=== PATIENT | female | born 1955 | race Caucasian/White ===

== ENCOUNTER 2017-12-21 12:15 | Emergency (ER) | payer BC ==
--- NOTE | 2017-12-21 13:57 | UC ---
General HPI - HPI Summary HPI Summary: 62 yo female c/o 2-3 weeks of progressive cough, left ear pain, sore throat with cough. No rash. + low grade fever this past week. No abd discomfort. No rash. C/o urinary incontinence d/t coughing so hard (x approx 1 week). - History of Current Complaint Stated Complaint: COUGH,CONGESTION,ST,EARS Time Seen by Provider: 12/21/17 13:48 Hx Obtained From: Patient - Allergy/Home Medications Allergies/Adverse Reactions: Allergies Allergy/AdvReac Type Severity Reaction Status Date / Time buspirone Allergy See Comment Verified 12/21/17 14:16 pregabalin [From Lyrica] Allergy Swelling Verified 12/21/17 14:16 quetiapine Allergy See Comment Verified 12/21/17 14:16 Home Medications: Home Medications Aspirin 81 mg CHEW TAB* [Aspirin Low Dose TAB*] 81 mg PO DAILY 12/21/17 [ History Confirmed 12/21/17] Calcium Citrate TAB* [Citracal TAB*] 200 mg PO DAILY 12/21/17 [History Confirmed 12/21/17] Carisoprodol TAB* [Soma TAB*] 350 mg PO TID 12/21/17 [History Confirmed ] Diazepam TAB(*) [Valium TAB(*)] 10 mg PO Q8H PRN 12/21/17 [History Confirmed ] Docusate CAP* [Colace Cap*] 100 mg PO DAILY 12/21/17 [History Confirmed 12/21/17 ] Iron 65 mg PO DAILY 12/21/17 [History Confirmed 12/21/17] Isradipine (NF) [DynaCirc (NF)] 5 mg PO BID 12/21/17 [History Confirmed 12/21/17 ] L.acidoph,Paracasei, B.lactis [Probiotic] 1 each PO DAILY 12/21/17 [History Confirmed 12/21/17] Mirtazapine TAB* [Remeron TAB*] 15 mg PO BEDTIME 12/21/17 [History Confirmed ] PARoxetine HCL TAB* [Paxil TAB*] 40 mg PO DAILY 12/21/17 [History Confirmed ] Ranitidine HCl (Nf) [Zantac] 150 mg PO DAILY 12/21/17 [History Confirmed ] Rosuvastatin (NF) [Crestor (NF)] 10 mg PO DAILY 12/21/17 [History Confirmed ] Valsartan TAB* [Diovan TAB*] 320 mg PO DAILY 12/21/17 [History Confirmed ] PMH/Surg Hx/FS Hx/Imm Hx Previously Healthy: No - see pmh - Family History Known Family History: Positive: Unknown - Social History Lives: Alone Smoking Status (MU): Current Every Day Smoker Review of Systems Constitutional: Fever, Fatigue Skin: Negative Eyes: Negative ENT: Ear Ache Respiratory: Cough Cardiovascular: Negative Gastrointestinal: Negative Genitourinary: Negative Motor: Negative Neurovascular: Negative Musculoskeletal: Negative Neurological: Negative Psychological: Negative Is Patient Immunocompromised?: No All Other Systems Reviewed And Are Negative: Yes Physical Exam Triage Information Reviewed: Yes Appearance: Well-Nourished - sitting up, conversing in full sentances, looks tired but nad Vital Signs Reviewed: Yes Eye Exam: Normal ENT: Positive: Pharyngeal erythema - mild post redness, uvula midline. no sores. airway patent, TM dull - tm dull L>R Neck exam: Normal Neck: Positive: Supple, Nontender, No Lymphadenopathy Respiratory Exam: Other - + occas exp wheeze. + rhonchorus cough. BS equal Respiratory: Positive: Chest non-tender, No respiratory distress, No accessory muscle use, Respiratory distress Cardiovascular Exam: Normal Cardiovascular: Positive: RRR, No Murmur Abdominal Exam: Normal Abdomen Description: Positive: Nontender Bowel Sounds: Positive: Present Musculoskeletal Exam: Normal - gait steady, moves x 4 exts Neurological Exam: Normal - grossly nonfocal Psychological Exam: Normal - conversing easily and appropriately tearful Skin Exam: Normal - no visible or reported rash. non-diaphoretic. Course/Dx - Course Course Of Treatment: Reviewe coa / tx plan with pt. Questions as posed answered to the best of my ability. Has used albuterol in the past without difficulty. F/u pcp encouraged. - Differential Dx - Multi-Symptom Provider Diagnoses: Bronchitis with wheezing Discharge - Sign-Out/Discharge Documenting (check all that apply): Discharge/Admit/Transfer - Discharge Plan Condition: Stable Disposition: HOME Prescriptions: Albuterol HFA INHALER* [Ventolin HFA Inhaler*] 1 - 2 puff INH Q4H PRN #1 mdi PRN Reason: Wheezing DOXYcycline CAP(*) [DOXYcycline 100MG CAP(*)] 100 mg PO BID #20 cap Patient Education Materials: Upper Respiratory Infection (ED), Bronchospasm (ED ) Referrals: Yeni Parisi MD [Primary Care Provider] - Additional Instructions: Follow up with your primary care physician in the next 1-2 weeks for recheck. Please seek medical attention for worse or new problems in the meantime. - Billing Disposition and Condition Condition: STABLE Disposition: HOME
[2017-12-21 14:27] VITALS: BP 127/95
== END 2017-12-21 14:28 | disposition home or self-care (01) ==
LOC: UCCORT 12:15
DX: J40 Bronchitis, not specified as acute or chronic (principal); R06.2 Wheezing; Z88.8 Allergy status to other drugs, medicaments and biological substances; F17.210 Nicotine dependence, cigarettes, uncomplicated
CPT/HCPCS: 99202; G0463

== ENCOUNTER 2017-12-25 12:24 | Emergency (ER) | payer BC ==
[2017-12-25 13:41] VITALS: BP 149/77
--- NOTE | 2017-12-25 13:41 | UC ---
Respiratory Complaint HPI - HPI Summary HPI Summary: 62 y/o female presents to the urgent care c/o productive cough getting worse today. Pt has Hx of anxiety. Pt reports symptoms started 2 weeks ago w/ clearn nasal congestion and dry cough. She was seen here on 12/21/2017 and Dx w / bronchitis and Rx Doxycycline Po and albuterol inhaler. However her weeding has gotten worse despite inhaler. Pt was not able to sleep last night due to cough. seh feel mild SOB at times. Pt is a heavy everyday smoker. Pt deneis fever, chest pain, palpitations, abdominal pain, N/V/D. - History of Current Complaint Stated Complaint: COUGH/ST Time Seen by Provider: 12/25/17 13:32 Hx Obtained From: Patient ?: No Onset/Duration: Gradual Onset, Lasting Weeks - 2 weeks, Still Present Timing: Intermittent Episodes Severity Initially: Mild Severity Currently: Moderate Pain Intensity: 2 - sore throat Pain Scale Used: 0-10 Numeric Character: Cough: Productive, Sputum Description: - clear Aggravating Factors: Recumbent Position - Allergies/Home Medications Allergies/Adverse Reactions: Allergies Allergy/AdvReac Type Severity Reaction Status Date / Time buspirone Allergy See Comment Verified 12/21/17 14:16 pregabalin [From Lyrica] Allergy Swelling Verified 12/21/17 14:16 quetiapine Allergy See Comment Verified 12/21/17 14:16 PMH/Surg Hx/FS Hx/Imm Hx Previously Healthy: Yes Endocrine History: Dyslipidemia Cardiovascular History: Hypertension GI/ History: Gastroesophageal Reflux Psychological History: Anxiety, Depression - Surgical History Surgical History: Yes Surgery Procedure, Year, and Place: neck, back. patrizia - Family History Known Family History: Positive: None, Cardiac Disease, Hypertension - Social History Occupation: Retired Lives: With Family Alcohol Use: None Substance Use Type: None Smoking Status (MU): Current Every Day Smoker Type: Cigarettes Amount Used/How Often: less than 1/2 PPD Review of Systems Constitutional: Negative Skin: Negative Eyes: Negative ENT: Sore Throat - mild Respiratory: Shortness Of Breath - mild at times, Cough - productive, Other - wheezing Cardiovascular: Negative Gastrointestinal: Negative Genitourinary: Negative Motor: Negative Neurovascular: Negative Musculoskeletal: Negative Neurological: Negative Psychological: Negative Is Patient Immunocompromised?: No All Other Systems Reviewed And Are Negative: Yes Physical Exam - Summary Physical Exam Summary: Vital Signs Reviewed: Yes General: well developed, well nourished female sitting in the examining table w/ o any apparent distress Eyes: Positive: Conjunctiva Clear - PERRLA, EOMI, fundi grossly normal ENT: Positive: Normal ENT inspection, Hearing grossly normal, Pharynx normal, Nasal congestion - edematous and erythematous nasal mucosa, Nasal drainage - yellowish drainage, TMs normal. Negative: Tonsillar swelling, Tonsillar exudate Neck: Positive: Supple, Nontender, No Lymphadenopathy Respiratory: no orthopnea or dyspnea. Able to speak in full sentences, no retractions or accessory muscle use, no tripod position, stridor, or head bobbing. Positive breath sounds bilaterally,B/L postrior lungs w; scattered wheezing, no rhonchi, rales or crackles Cardiovascular: Positive: RRR, No Murmur, Pulses Normal, Brisk Capillary Refill Abdomen Description: Positive: Nontender, No Organomegaly, Soft. Negative: CVA Tenderness (R), CVA Tenderness (L) Bowel Sounds: Positive: Present Musculoskeletal Exam: Normal Musculoskeletal: Positive: Strength Intact, ROM Intact, No Edema Neurological Exam: Normal Psychological Exam: Normal Skin Exam: Normal Triage Information Reviewed: Yes Respiratory Course/Dx - Course Course Of Treatment: 62 y/o female presents to the urgent care c/o productive cough getting worse today. Pt has Hx of anxiety. Pt reports symptoms started 2 weeks ago w/ clearn nasal congestion and dry cough. She was seen here on 12/21 and Dx w/ bronchitis and Rx Doxycycline Po and albuterol inhaler. However her weeding has gotten worse despite inhaler. Pt was not able to sleep last night due to cough. seh feel mild SOB at times. Pt is a heavy everyday smoker. Pt deneis fever, chest pain, palpitations, abdominal pain, N/V/D. Hx obtained. Pt w/ acute COPD exacerbation due to bronchitis on examination. Chest X-ray ordered to r/o pneumonia. Impression: Stigmata of COPD, No active Cardiopulmonary disease observed. Pt with posterior upper lungs w/ scattered wheezing on both lungs. O2sat: 96% Pt is a heavy smoker. Prednisone 60 mg PO ordered. Pt just did an albuterol inhaler about 1/2hr ago. Pt tolerated well medications and her lungs improved. Pt states feeling better. Pt will be tX for Acute Bronchitis,Advised to continue taking Doxycycline PO , RX Prednisone taper dose and tessalon tabs PO to alleviate cough. Strongly advised to f/u with her PCP for further management. She also has elevated BP today, advised to decrease salt in her diet and monitor BP, if it continues to be elevated to f /u with her PCP. Pt understood and agreed with D/C instructions and left the clinic hemodynamically stable. - Differential Dx/Diagnosis Differential Diagnosis/HQI/PQRI: Asthma, Bronchitis, Exacerbation Of COPD, Lower Resp Infection, Sinusitis Provider Diagnoses: 1- Acute COPD exacerbation due to bronchitis. 2-cough. 3- Uncontrolled HTN Discharge - Sign-Out/Discharge Documenting (check all that apply): Discharge/Admit/Transfer - D/C home - Discharge Plan Condition: Stable Disposition: HOME Prescriptions: Benzonatate CAP* [Tessalon 100 MG CAP*] 100 mg PO TID #21 cap predniSONE TAB* [Deltasone 20 MG TAB*] 20 mg PO DAILY #8 tab Patient Education Materials: COPD (Chronic Obstructive Pulmonary Disease) (ED) , Low-Sodium Diet (ED) Referrals: Yeni Parisi MD [Primary Care Provider] - 3 Days Additional Instructions: 1-Please continue taking Doxycycline full course of antibiotic to avoid resistance. 2- Take Prednisone PO as directed starting tomorrow. First dose given today 3-Take Tessalon PO tabs as directed and continue using the albuterol inhaler to alleviate cough. Increase fluid intake, rest and eat well. 4- If symptoms do not improve or worsen or your develop SOB with fever and severe wheezing please go immediately to the ER further evaluation and treatment. 5- F/u with your PCP in 2-3 days for further management you maybe developing COPD 6-Your BP is elevated today. please decrease salt in your diet, monitor BP and if it continues to be elevated please f/u with your PCP for further management - Billing Disposition and Condition Condition: STABLE Disposition: Home
[2017-12-25] MEDS ORDERED: predniSONE TAB* 20 MG PO ONE (14:18)
--- NOTE | 2017-12-25 14:19 | RAD ---
INDICATION: Productive cough, shortness of breath, wheezing. Bronchitis for 3 weeks. COMPARISON: No relevant prior exams available on the [facility] [place]ACS for comparison. TECHNIQUE: Dual energy PA and routine lateral views of the chest were obtained. REPORT: Elevated lung volumes based on the lateral view. Both mild prominence and mild upper lung zone rarefaction of interstitial markings. No focal pulmonary lesion, compelling alveolar consolidation, pleural effusion, pneumothorax. The heart, pulmonary vasculature, and mediastinal contours are unremarkable. No rib fracture or suspicious focal osseous lesion evident. Anterior cervical fusion hardware. Gallbladder fossa level surgical clips. IMPRESSION: Stigmata of obstructive lung disease. No acute pulmonary or cardiac process evident.
== END 2017-12-25 14:53 | disposition home or self-care (01) ==
LOC: UCCORT 12:24
DX: J44.9 Chronic obstructive pulmonary disease, unspecified (principal); J20.9 Acute bronchitis, unspecified; I10 Essential (primary) hypertension; F17.210 Nicotine dependence, cigarettes, uncomplicated; Z88.8 Allergy status to other drugs, medicaments and biological substances
CPT/HCPCS: 71046; 99212; G0463; J7512

== ENCOUNTER 2018-03-23 14:25 | Emergency (ER) | payer BC ==
--- OUTSIDE RECORDS SUMMARY | 2018-03-23 15:10 | XMS REPORT ---
:1955 External Reference #:[id number] Author Organization [facility] Address [address], [address] [place] [address] Phone [phone] Care Team Providers Name Role Phone Yeni Parisi MD Care Team Information [employer] Unavailable Yeni Parisi MD Primary Care Physician Unavailable Payers Type Date Identification Numbers Payment Provider Subscriber Commercial Effective: Policy Number: Abilio Frost 2009 [id number] Group Number: [id number] [address] [address] PayID: [id number] [place] [address] Problems Date Description Provider Status Onset: 03/22/2015 Spinal stenosis Maribell Gutierrez PA-C Active Note: cervical fusion, Dr. Herzog, Matt; also L4-5; L4-5 diskectomy, interbody fusion September 2014 Onset: 03/22/2015 Iron deficiency anemia Maribell Gutierrez PA-C Active Note: Feb 2015 ferritin 26 Onset: 03/22/2015 Essential hypertension Maribell Gutierrez PA-C Active Note: low-renin; BP readings December 2016 high 149/84, low 117/81 Onset: 03/22/2015 Hyperlipidemia Maribell Gutierrez PA-C Active Note: Chol 2015 Onset: 03/22/2015 History of polyp of colon Maribell Gutierrez PA-C Active Note: TA; colonoscopy to TI 2010; random colon Bx- Onset: 03/22/2015 Chronic bronchitis Maribell Gutierrez PA-C Active Note: PFT November 2013 Onset: 03/22/2015 Thin basement membrane disease Maribell Gutierrez PA-C Active Note: CT a&p - 09/2011 Onset: 03/22/2015 Diverticulosis of small intestine Maribell Gutierrez PA-C Active Note: D2 Onset: 03/22/2015 Chronic pancreatitis Maribell Gutierrez PA-C Active Onset: 03/22/2015 Depressive disorder Maribell Gutierrez PA-C Active Onset: 03/22/2015 Primary fibromyalgia syndrome Maribell Gutierrez PA-C Active Onset: 03/22/2015 Gout Maribell Gutierrez PA-C Active Onset: 03/22/2015 Degenerative joint disease Maribell Gutierrez PA-C Active involving multiple joints Onset: 03/22/2015 Gastroesophageal reflux disease Maribell Gutierrez PA-C Active Onset: 09/03/2015 Adult health examination Maribell Gutierrez PA-C Active Note: Breast exam 2015 and mammogram 2015 (Carlos). Pap smear 2016. 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 Work Status Not Currently Working Cigarette Use Current Cigarette Smoker 1 Pack Daily x 20 yrs ETOH Use Denies alcohol use Smoking Patient is a current smoker, smokes every day 1 PPD Recreational Drug Use Denies Drug Use Daily Caffeine Consumes on average 2 cups of regular coffee per day Allergies, Adverse Reactions, Alerts Date Description Reaction Status Severity Comments 03/22/2015 Cyclobenzaprine active Moderate 03/22/2015 Lyrica active Moderate Peripheral Edema 08/19/2016 Seroquel active confusion, depression 06/08/2017 Buspirone Psychotic active 04/04/2010 NKDA inactive Medications Medication Date Status Form Strength Qnty SIG Indications Ordering Provider Venlafaxine 03/12 Active Caps ER 37.5mg 30cap Take one F41.0 Zarina HCL 24HR s in the [place], morning 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 Mirtazapine 11/05 Active Tablets 15mg 90tab 1 tablet F32.89 Yeni s by mouth MD Isak at at bedtime Probiotic 10/15 Active Capsules 90cap 1 capsules J06.9 Hector Acid s by mouth Mohini Craven daily Isradipine 08/19 Active Capsules 5mg 180ca take 1 I10 ps capsule (5 MD Isak mg) by mouth twice daily Zantac 04/02 Active Tablets 150mg 180ta 1 by mouth Russ E. bs every day Behzad DO Valsartan 11/26 Active Tablets 320mg 90tab 1 by mouth I10 s every day MD Isak Soma 03/07 Active Tablets 350mg 120ta 1 by mouth bs every 6 h Mohini Craven as needed pain Stool Softener Active Capsules 100mg 1 po daily Unknown / Aspirin Ec Active Tablets DR 81mg 1 daily Unknown /0000 Iron Active Tablets 325(65Fe) 1 by mouth Unknown /0000 mg every day Paroxetine HCL Active Tablets 40mg 90tab 1 tab by Yeni s mouth MD Isak every day Citracal +D3 Active 1 by mouth Unknown /0000 every day Motrin Ib Active Tablets 200mg 3 PO q 8 Unknown /0000 hrs prn Benzonatate 12/16 Hx Capsules 100mg 30cap 1 tab by Yeni s mouth MD Isak - every 8 / hours needed for cough Sudafed Nasal 12/16 Hx Tablets 30mg 30tab 1 tab by Yeni Decongestant s mouth MD Isak Maximum - twice a Strength 03/12 day needed for congestion Fluticasone 09/24 Hx Suspension 50mcg/Act 16gm spray 1-2 Yeni Propionate sprays in MD Isak - each 03/12 nostril once daily Buspirone HCL 11/05 Hx Tablets 15mg 180ta 1 by mouth [id number] Hector bs once daily Mohini Craven x 5 days, then off Buspirone HCL 10/15 Hx Tablets 15mg 270ta 1 by mouth [id number] Hector bs three Mohini Craven - times 11/05 Azithromycin 10/15 Hx Tablets 250mg 6tabs take 2 J06. tablets by Mohini Craven - mouth on 11/05 day then 1 tablet by mouth x 4 days Buspirone HCL 08/19 Hx Tablets 7.5mg 120ta 1 tab by Cata Young bs mouth oMhini Craven - twice 10/15 daily, increase to 2 tabs twice daily Metronidazole 04/17 Hx Tablets 500mg 30tab 1 by mouth Meliton s three H. times a Carlos Mohini Zostavax 04/02 Hx Solution 70050Dlp/ 1unit vaccine Russ Hernandez Rec 0.65ML s administra Behzad LORENZ tion dx v04.89 Sucralfate 03/20 Hx Tablets 1gm 120ta 1 by mouth Meliton bs four times H. - a day Carlos 11/05 M.DHerbert Alprazolam 02/18 Hx Tablets 1mg 270ta 3 by mouth [id number] Young bs 3 times a Mohini Craven - day as 11/05 needed Quetiapine 02/18 Hx Tablets 25mg 90tab 1 by mouth F32.8 Russ Hernandez Fumarate s every day Behzad LORENZ - 07/31 Morphine 12/02 Hx Caps ER 10mg 30cap 1 by mouth Russ EHerbert Sulfate ER /2015 24HR s daily Behzad LORENZ Benzonatate 11/26 Hx Capsules 200mg 90cap 1 by mouth J01.90 Russ . s three Behzad DO - times a 03/20 day needed cough Azithromycin 11/26 Hx Tablets 250mg 6tabs take 2 J.90 tablets by Behzad DO mouth on day 1, then 1 tablet by mouth x 4 days Wendi 11/26 Hx Caps ER 20mg 1 PO bid Russ Hernandez 24HR Behzad LORENZ - 12/02 Valsartan 10/14 Hx Tablets 160mg 90tab 1 by mouth I10 Russ EHerbert s every day Behzad LORENZ - 11/26 Alprazolam 09/03 Hx Tablets 1mg 180ta take 1-2 Russ EHerbert bs tablets by Behzad DO - mouth 02/18 times a day as needed Isradipine 09/03 Hx Capsules 2.5mg 180ca take 1 ps capsule Mohini Maddox - (2.5 mg) 08/19 by mouth times per day Ferrous 03/22 Hx Tablets 325(65Fe) 60tab 1 by mouth Nehemiah Mccabe mg s 2 times a Mohini Maddox day MS Contin 03/12 Hx Tablets ER 60mg 60tab 1 by mouth Russ Hernandez /2014 s every 12 Behzad DO - hours 11/26 Oxycodone HCL 03/12 Hx Tablets 30mg 180ta 1 tablet Russ Hernandez bs by mouth Behzad LORENZ - every 4 11/26 hours needed pain Pravastatin 03/07 Hx Tablets 40mg 90tab 1 by mouth Russ Castaneda s every Behzad DO - night at 06/08 bedtime Silver 04/13 Hx Cream 1% 400gm use on 709.9 [place] Sulfadiazine /2013 dressings, H. - band aid Carlos, 09/03 and with Mohini /2015 bathing or dressing changes once daily and as needed Percocet 00 Hx Tablets 5-325mg po q4h prn Nehemiah /0000 Mohini Maddox - 04/[address] 40mg 30cap 1 po qd Unknown / s - 01/07 MS Contin Hx Tablets ER 60mg bid Unknown /0000 12HR - 03/12 Diovan Hx Tablets 80mg 30tab 1 po qd Unknown /0000 s - 01/14 Ursodiol Hx Capsules 300mg 60cap 1 po bid Unknown /0000 s - 09/03 Niaspan Hx Tablets ER 500mg 30tab 1 po qd Unknown /0000 s - 01/[address] 40mg 90tab 1 PO daily Nehemiah /0000 s (before darrell Maddox M.D. - meal) 04/02 Pravastatin Hx Tablets 40mg Unknown Sodium /0000 - 03/07 Isradipine Hx Capsules 2.5mg Unknown /0000 - 09/03 Soma Hx Tablets 350mg 1 po q 6 h Unknown /0000 prn pain - 03/07 Oxycodone HCL Hx Tablets 15mg Unknown /0000 - 03/12 Ibuprofen 00 Hx Tablets 600mg Unknown /0000 Alprazolam 00 Hx Tablets 0.25mg 1 po every Unknown /0000 8 hours - prn 09/03 Oxycodone HCL Hx Tablets 5mg 15tab 1/2 tablet Russ E. /0000 s by mouth Behzad DO daily as needed Keflex Hx Capsules 500mg 1 by mouth Unknown /0000 bid Immunizations CPT Code Status Date Vaccine Lot # [id number] Given 04/04/2014 flu vaccination 07435 Given 03/24/2012 flu vaccination 05290 Given 04/11/2011 Tetnus Injection 54809 Given 04/11/2011 flu vaccination 31547 Given 05/22/2010 flu vaccination 50160 Given 04/25/2008 flu vaccination 64992 Given 08/27/2000 Tetnus Injection 93117 Given 07/27/2000 Pneumococcal Conjugate Vaccine 13 Valent For Intramuscular Use Q2038 Refused 04/02/2016 Influenza Vaccine (Fluzone) Age 3 And Older Vital Signs Date Vital Result Comment 03/12/2018 BP Systolic 161 mmHg BP Diastolic 90 mmHg Body Temperature 98.1 F Heart Rate 79 /min Respiratory Rate 18 /min Height 60 inches 5'0" Weight 175.50 lb BMI (Body Mass Index) 34.3 kg/m2 BSA (Body Surface Area) 1.77 m2 [place] body weight in kilograms 45 O2 % BldC Oximetry 95 % 12/16/2017 BP Systolic Sitting Right Arm 160 mmHg Ady 137/85 BP Diastolic Sitting Right Arm 92 mmHg Ady 137/85 Body Temperature 97.9 F Heart Rate 91 /min Respiratory Rate 16 /min Height 60 inches 5'0" Weight 181.00 lb BMI (Body Mass Index) 35.3 kg/m2 BSA (Body Surface Area) 1.79 m2 [place] body weight in kilograms 45 O2 % BldC Oximetry 94 % 09/21/2017 BP Systolic Sitting Right Arm 147 mmHg Ady 127/78 BP Diastolic Sitting Right Arm 85 mmHg Ady 127/78 Heart Rate 87 /min Respiratory Rate 16 /min Height 60 inches 5'0" Weight 178.00 lb BMI (Body Mass Index) 34.8 kg/m2 BSA (Body Surface Area) 1.78 m2 [place] body weight in kilograms 45 06/08/2017 BP Systolic Sitting Right Arm 184 mmHg Ady 134/83 BP Diastolic Sitting Right Arm 87 mmHg Ady 134/83 Heart Rate 91 /min Height 60 inches 5'0" Weight 168.00 lb BMI (Body Mass Index) 32.8 kg/m2 BSA (Body Surface Area) 1.73 m2 [place] body weight in kilograms 45 12/03/2016 BP Systolic 156 mmHg BP Diastolic 84 mmHg Heart Rate 86 /min Height 60 inches 5'0" Weight 151.00 lb BMI (Body Mass Index) 29.5 kg/m2 BSA (Body Surface Area) 1.66 m2 [place] body weight in kilograms 45 11/05/2016 BP Systolic Sitting Right Arm 152 mmHg BP Diastolic Sitting Right Arm 84 mmHg Height 60 inches 5'0" Weight 147.50 lb BMI (Body Mass Index) 28.8 kg/m2 BSA (Body Surface Area) 1.64 m2 10/15/2016 BP Systolic 146 mmHg BP Diastolic 78 mmHg Body Temperature 98.1 F Heart Rate 78 /min Height 60 inches 5'0" Weight 147.00 lb BMI (Body Mass Index) 28.7 kg/m2 BSA (Body Surface Area) 1.64 m2 O2 % BldC Oximetry 99 % 08/19/2016 BP Systolic 158 mmHg BP Diastolic 86 mmHg Heart Rate 78 /min Height 60 inches 5'0" Weight 145.00 lb BMI (Body Mass Index) 28.3 kg/m2 BSA (Body Surface Area) 1.63 m2 04/02/2016 BP Systolic 135 mmHg BP Diastolic 86 mmHg Heart Rate 73 /min Height 60 inches 5'0" Weight 145.00 lb BMI (Body Mass Index) 28.3 kg/m2 BSA (Body Surface Area) 1.63 m2 03/20/2016 BP Systolic 146 mmHg BP Diastolic 77 mmHg BP Systolic Standing Resting Right Arm 77 mmHg Height 60 inches 5'0" Weight 141.38 lb BMI (Body Mass Index) 27.6 kg/m2 BSA (Body Surface Area) 1.61 m2 02/19/2016 BP Systolic 134 mmHg BP Diastolic 84 mmHg Heart Rate 84 /min Height 60 inches 5'0" Weight 147.00 lb BMI (Body Mass Index) 28.7 kg/m2 BSA (Body Surface Area) 1.64 m2 01/15/2016 BP Systolic 137 mmHg BP Diastolic 91 mmHg Heart Rate 79 /min Height 60 inches 5'0" Weight 146.00 lb BMI (Body Mass Index) 28.5 kg/m2 BSA (Body Surface Area) 1.63 m2 11/27/2015 BP Systolic 140 mmHg BP Diastolic 74 mmHg Body Temperature 98.4 F Heart Rate 60 /min Height 60 inches 5'0" Weight 142.00 lb BMI (Body Mass Index) 27.7 kg/m2 BSA (Body Surface Area) 1.61 m2 O2 % BldC Oximetry 97 % 10/15/2015 Heart Rate 63 /min Respiratory Rate 16 /min Height 60 inches 5'0" Weight 150.00 lb BMI (Body Mass Index) 29.3 kg/m2 BSA (Body Surface Area) 1.65 m2 09/03/2015 BP Systolic 191 mmHg BP Diastolic 98 mmHg Heart Rate 79 /min Height 60 inches 5'0" Weight 144.00 lb BMI (Body Mass Index) 28.1 kg/m2 BSA (Body Surface Area) 1.62 m2 03/22/2015 BP Systolic 132 mmHg BP Diastolic 84 mmHg Heart Rate 80 /min Height 60 inches 5'0" Weight 143.00 lb BMI (Body Mass Index) 27.9 kg/m2 BSA (Body Surface Area) 1.62 m2 04/13/2014 Height 60 inches 5'0" Weight 143.00 lb BMI (Body Mass Index) 27.9 kg/m2 BSA (Body Surface Area) 1.62 m2 01/07/2013 BP Systolic Sitting Right Arm 140 mmHg BP Diastolic Sitting Right Arm 84 mmHg Height 62 inches 5'2" Weight 161.00 lb BMI (Body Mass Index) 29.4 kg/m2 BSA (Body Surface Area) 1.74 m2 10/06/2012 BP Systolic Sitting Right Arm 124 mmHg BP Diastolic Sitting Right Arm 75 mmHg Heart Rate 67 /min Respiratory Rate 16 /min Height 60 inches 5'0" Weight 148.00 lb BMI (Body Mass Index) 28.9 kg/m2 09/11/2011 BP Systolic Sitting Right Arm 137 mmHg BP Diastolic Sitting Right Arm 83 mmHg Heart Rate 67 /min Respiratory Rate 18 /min Height 60 inches 5'0" Weight 138.00 lb BMI (Body Mass Index) 26.9 kg/m2 04/04/2010 Height 60 inches 5'0" Weight 152.00 lb BMI (Body Mass Index) 29.7 kg/m2 Last Menstrual Period 0 Results Test Date Test Result H/L Range Note Comprehensive Metabolic Panel 01/18/2018 Glucose 118 mg/dL High 74-106 1 BUN 16 mg/dL 7-18 1 Creatinine 0.8 mg/dL 0.6-1.3 1 Glom Filtration Rate, Estimate >60 mL/min >60 1 If >60 mL/min >60 1, 2 BUN/Creat 20.0 ratio 1 Sodium 140 mmol/L 136-145 1 Potassium 4.0 mmol/L 3.5-5.1 1 Chloride 106 mmol/L 98-107 1 Carbon Dioxide 22 mmol/L 21-32 1 Anion Gap 12 mEq/L 8-16 1 Calcium 8.9 mg/dL 8.5-10.1 1 Total Protein 7.8 g/dL 6.4-8.2 1 Albumin 3.6 g/dL 3.4-5.0 1 Globulin 4.2 g/dL 1.9-4.3 1 Alb/Glob 0.9 ratio 1 Bilirubin,Total 0.1 mg/dL Low 0.2-1.0 1 Sgot/Ast 16 U/L 15-37 1 SGPT/Alt 21 U/L 12-78 1 Alkaline Phosphatase 92 U/L 45-117 1 LDL Cholesterol Profile 01/18/2018 Cholesterol 183 mg/dL <200 1, 3 Triglycerides 231 mg/dL High <150 1, 4 HDL Cholesterol 54 mg/dL >40 1, 5 LDL-Cholesterol 83 mg/dL < 100 1, 6 Laboratory test finding 01/18/2018 Vitamin D,25-Hydroxy 33.9 ng/mL 30.0- 100.0 1, 7 CBS W/Automated Diff 09/16/2017 White Blood Count 7.0 K/uL 3.1-10.7 8 Red Blood Count 4.09 M/uL 3.90-5.40 8 Hemoglobin 13.3 gm/dL 11.6-15.8 8 Hematocrit 40.1 % 36.0-46.1 8 Mean Cell Volume 98.0 fl 80.9-99.0 8 Mean Corpuscular HGB 32.5 pg 25.9-32.7 8 Mean Corpuscular HGB Conc 33.2 g/dL 30.8-34.3 8 Platelet Count 323 K/uL 155-360 8 Red Cell Distri Width SD 44.5 fl 3-47 8 Red Cell Distri Width %CV 12.6 % 11.7-14.4 8 Mean Platelet Volume 9.3 fL 8.9-12.4 8 Neut% 62.3 % 40.4-72.8 8 Lymph % 26.9 % 20.0-42.0 8 Dane % 8.4 % 4.3-13.2 8 Eo% 2.0 % 0.0-6.6 8 Bas% 0.4 % 0.0-1.1 8 Neut# 4.37 K/uL 1.8-7.0 8 Lymph # 1.89 K/uL 1.0-4.0 8 Dane # 0.59 K/uL 0.3-0.9 8 Eos # 0.14 K/uL 0.0-0.5 8 Baso # 0.03 K/uL 0.0-0.1 8 Laboratory test 09/16/2017 Vitamin D,25-Hydroxy 27.3 ng/mL Low 30.0-100.0 8, 9 finding Comprehensive 09/16/2017 Glucose 108 mg/dL High 74-106 8 Metabolic Panel BUN 14 mg/dL 7-18 8 Creatinine 0.8 mg/dL 0.6-1.3 8 Glom Filtration Rate, Estimate >60 mL/min >60 8 If >60 mL/min >60 8, 10 BUN/Creat 17.5 ratio 8 Sodium 142 mmol/L 136-145 8 Potassium 4.4 mmol/L 3.5-5.1 8 Chloride 107 mmol/L 98-107 8 Carbon Dioxide 28 mmol/L 21-32 8 Anion Gap 7 mEq/L Low 8-16 8 Calcium 8.7 mg/dL 8.5-10.1 8 Total Protein 7.8 g/dL 6.4-8.2 8 Albumin 3.6 g/dL 3.4-5.0 8 Globulin 4.2 g/dL 1.9-4.3 8 Alb/Glob 0.9 ratio 8 Bilirubin,Total 0.2 mg/dL 0.2-1.0 8 Sgot/Ast 17 U/L 15-37 8 SGPT/Alt 16 U/L 12-78 8 Alkaline Phosphatase 87 U/L 45-117 8 Glycohemoglobin A1c 09/16/2017 Glycohemoglobin (A1c) 5.3 % 4.2-6.3 8, 11 eAG 105 mg/dL 8 LDL Cholesterol Profile 09/16/2017 Cholesterol 187 mg/dL <200 8, 12 Triglycerides 248 mg/dL High <150 8, 13 HDL Cholesterol 58 mg/dL >40 8, 14 LDL-Cholesterol 79 mg/dL < 100 8, 15 Xray 07/30/2017 Mammography, Bilateral birads 0 Laboratory test finding 04/28/2017 Magnesium 2.2 mg/dL 1.8-2.4 16 Vitamin D,25-Hydroxy 28.6 ng/mL Low 30.0-100.0 16, 17 LDL Cholesterol Profile 04/28/2017 Cholesterol 260 mg/dL High <200 16, 18 Triglycerides 261 mg/dL High <150 16, 19 HDL Cholesterol 64 mg/dL >40 16, 20 LDL-Cholesterol 144 mg/dL < 100 16, 21 Comprehensive Metabolic Panel 04/28/2017 Glucose 115 mg/dL High 74-106 16 BUN 16 mg/dL 7-18 16 Creatinine 0.9 mg/dL 0.6-1.3 16 Glom Filtration Rate, Estimate >60 mL/min >60 16 If >60 mL/min >60 16, 22 BUN/Creat 17.7 ratio 16 Sodium 144 mmol/L 136-145 16 Potassium 4.0 mmol/L 3.5-5.1 16 Chloride 111 mmol/L High 98-107 16 Carbon Dioxide 26 mmol/L 21-32 16 Anion Gap 7 mEq/L Low 8-16 16 Calcium 8.7 mg/dL 8.5-10.1 16 Total Protein 7.6 g/dL 6.4-8.2 16 Albumin 3.7 g/dL 3.4-5.0 16 Globulin 3.9 g/dL 1.9-4.3 16 Alb/Glob 0.9 ratio 16 Bilirubin,Total 0.2 mg/dL 0.2-1.0 16 Sgot/Ast 15 U/L 15-37 16 SGPT/Alt 19 U/L 12-78 16 Alkaline Phosphatase 96 U/L 45-117 16 CBS W/Automated Diff 04/28/2017 White Blood Count 7.2 K/uL 3.1-10.7 16 Red Blood Count 4.04 M/uL 3.90-5.40 16 Hemoglobin 13.4 gm/dL 11.6-15.8 16 Hematocrit 39.9 % 36.0-46.1 16 Mean Cell Volume 98.8 fl 80.9-99.0 16 Mean Corpuscular HGB 33.2 pg High 25.9-32.7 16 Mean Corpuscular HGB Conc 33.6 g/dL 30.8-34.3 16 Platelet Count 299 K/uL 150-400 16 Red Cell Distri Width SD 46.4 fl 3-47 16 Red Cell Distri Width %CV 13.1 % 11.7-14.4 16 Mean Platelet Volume 9.6 fL 8.9-12.4 16 Neut% 52.3 % 40.4-72.8 16 Lymph % 36.0 % 20.0-42.0 16 Dane % 8.2 % 4.3-13.2 16 Eo% 3.1 % 0.0-6.6 16 Bas% 0.4 % 0.0-1.1 16 Neut# 3.74 K/uL 1.8-7.0 16 Lymph # 2.58 K/uL 1.0-4.0 16 Dane # 0.59 K/uL 0.3-0.9 16 Eos # 0.22 K/uL 0.0-0.5 16 Baso # 0.03 K/uL 0.0-0.1 16 Laboratory test finding 04/28/2017 Ferritin 202 ng/mL 8-252 16 Lymphocytes/leuk NFr 07/29/2016 Lymphocytes/leuk NFr 40.1 17.0-46.1 Bld Auto Bld Auto MCH RBC Qn Auto 07/29/2016 MCH RBC Qn Auto 32.3 25.9-32.7 MCHC RBC Auto-mCnc 07/29/2016 MCHC RBC Auto-mCnc 33.2 30.8-34.3 MCV RBC Auto 07/29/2016 MCV RBC Auto 97.4 80.9-99.0 Monocytes # Bld Auto 07/29/2016 Monocytes # Bld Auto 0.58 0.3-0.9 Monocytes/leuk NFr Bld 07/29/2016 Monocytes/leuk NFr Bld 8.4 4.3-13.2 Auto Auto Neutrophils # Bld Auto 07/29/2016 Neutrophils # Bld Auto 3.34 1.8-7.0 Neutrophils/leuk NFr 07/29/2016 Neutrophils/leuk NFr 48.6 40.4-72.8 Bld Auto Bld Auto PMV Bld Auto 07/29/2016 PMV Bld Auto 9.3 8.9-12.4 Platelet # Bld Auto 07/29/2016 Platelet # Bld Auto 397 High 155-360 Potassium SerPl-sCnc 07/29/2016 Potassium SerPl-sCnc 4.8 3.5-5.1 Prot SerPl-mCnc 07/29/2016 Prot SerPl-mCnc 7.0 6.4-8.2 RBC # Bld Auto 07/29/2016 RBC # Bld Auto 3.81 Low 3.90-5.40 RDW RBC Auto 07/29/2016 RDW RBC Auto 45.7 3-47 RDW RBC Auto-Rto 07/29/2016 RDW RBC Auto-Rto 13.2 11.7-14.4 Serum or plasma 07/29/2016 Serum or plasma 106 8-252 ferritin measurement ferritin measurement (mass/volume) (mass/volume) Sodium SerPl-sCnc 07/29/2016 Sodium SerPl-sCnc 137 136-145 WBC # Bld Auto 07/29/2016 WBC # Bld Auto 6.9 3.1-10.7 CBS W/Automated Diff 07/29/2016 White Blood Count 6.9 K/uL 3.1-10.7 23 Red Blood Count 3.81 M/uL Low 3.90-5.40 23 Hemoglobin 12.3 gm/dL 11.6-15.8 23 Hematocrit 37.1 % 36.0-46.1 23 Mean Cell Volume 97.4 fl 80.9-99.0 23 Mean Corpuscular HGB 32.3 pg 25.9-32.7 23 Mean Corpuscular HGB Conc 33.2 g/dL 30.8-34.3 23 Platelet Count 397 K/uL High 155-360 23 Red Cell Distri Width SD 45.7 fl 3-47 23 Red Cell Distri Width %CV 13.2 % 11.7-14.4 23 Mean Platelet Volume 9.3 fL 8.9-12.4 23 Neut% 48.6 % 40.4-72.8 23 Lymph % 40.1 % 17.0-46.1 23 Dane % 8.4 % 4.3-13.2 23 Eo% 2.3 % 0.0-6.6 23 Bas% 0.6 % 0.0-1.1 23 Neut# 3.34 K/uL 1.8-7.0 23 Lymph # 2.76 K/uL 1.8-7.0 23 Dane # 0.58 K/uL 0.3-0.9 23 Eos # 0.16 K/uL 0.0-0.5 23 Baso # 0.04 K/uL 0.0-0.1 23 Comprehensive Metabolic Panel 07/29/2016 Glucose 85 mg/dL 74-106 23 BUN 14 mg/dL 7-18 23 Creatinine 0.7 mg/dL 0.6-1.3 23 Glom Filtration Rate, Estimate >60 mL/min >60 23 If >60 mL/min >60 23, 24 BUN/Creat 20.0 ratio 23 Sodium 137 mmol/L 136-145 23 Potassium 4.8 mmol/L 3.5-5.1 23 Chloride 104 mmol/L 98-107 23 Carbon Dioxide 26 mmol/L 21-32 23 Anion Gap 7 mEq/L Low 8-16 23 Calcium 8.5 mg/dL 8.5-10.1 23 Total Protein 7.0 g/dL 6.4-8.2 23 Albumin 3.4 g/dL 3.4-5.0 23 Globulin 3.6 g/dL 1.9-4.3 23 Alb/Glob 0.9 ratio 23 Bilirubin,Total 0.2 mg/dL 0.2-1.0 23 Sgot/Ast 22 U/L 15-37 23 SGPT/Alt 30 U/L 12-78 23 Alkaline Phosphatase 93 U/L 45-117 23 Laboratory test 07/29/2016 Ferritin 106 ng/mL 8-252 23 finding Alp SerPl-cCnc 07/29/2016 Alp SerPl-cCnc 93 45-117 Alt SerPl-cCnc 07/29/2016 Alt SerPl-cCnc 30 12-78 Ast SerPl-cCnc 07/29/2016 Ast SerPl-cCnc 22 15-37 Albumin SerPl-mCnc 07/29/2016 Albumin SerPl-mCnc 3.4 3.4-5.0 Albumin/Glob SerPl 07/29/2016 Albumin/Glob SerPl 0.9 Anion Gap SerPl-sCnc 07/29/2016 Anion Gap SerPl-sCnc 7 Low 8-16 BUN SerPl-mCnc 07/29/2016 BUN SerPl-mCnc 14 7-18 BUN/Creat SerPl 07/29/2016 BUN/Creat SerPl 20.0 Basophils # Bld Auto 07/29/2016 Basophils # Bld Auto 0.04 0.0-0.1 Lymphocytes # Bld 07/29/2016 Lymphocytes # Bld Auto 2.76 1.8-7.0 Auto Hgb Bld-mCnc 07/29/2016 Hgb Bld-mCnc 12.3 11.6-15.8 Hct VFr Bld Auto 07/29/2016 Hct VFr Bld Auto 37.1 36.0-46.1 Glucose 07/29/2016 Glucose [mass/volume] 85 74-106 [mass/volume] in in serum or plasma serum or plasma Globulin Ser 07/29/2016 Globulin Ser Calc-mCnc 3.6 1.9-4.3 Calc-mCnc Eosinophil/leuk NFr 07/29/2016 Eosinophil/leuk NFr 2.3 0.0-6.6 Bld Auto Bld Auto Eosinophil # Bld 07/29/2016 Eosinophil # Bld Auto 0.16 0.0-0.5 Auto Creat SerPl-mCnc 07/29/2016 Creat SerPl-mCnc 0.7 0.6-1.3 Chloride SerPl-sCnc 07/29/2016 Chloride SerPl-sCnc 104 98-107 Calcium SerPl-mCnc 07/29/2016 Calcium SerPl-mCnc 8.5 8.5-10.1 Co2 SerPl-sCnc 07/29/2016 Co2 SerPl-sCnc 26 21-32 Bilirub SerPl-mCnc 07/29/2016 Bilirub SerPl-mCnc 0.2 0.2-1.0 Basophils/leuk NFr 07/29/2016 Basophils/leuk NFr Bld 0.6 0.0-1.1 Bld Auto Auto pH Ur Strip.auto 07/08/2016 pH Ur Strip.auto 5.5 Low 6.5-7.5 Urobilinogen Ur 07/08/2016 Urobilinogen Ur 0.2 0.2-1.0 Strip-aCnc Strip-aCnc Urine hemoglobin 07/08/2016 Urine hemoglobin Small High Negative detection by detection by automated automated test strip test strip Bacteria Ur Cult 07/08/2016 Bacteria Ur Cult No Growth: Final Report Bacteria [presence] 07/08/2016 Bacteria [presence] in Very Few None Seen in urine sediment by urine sediment by light anna light microscopy Bilirub Ur Ql 07/08/2016 Bilirub Ur Ql Negative Negative Strip.auto Strip.auto Color Ur 07/08/2016 Color Ur Yellow Yellow Epithelial cells 07/08/2016 Epithelial cells Few None Seen [presence] in urine [presence] in urine sediment by l sediment by light microscopy Ketones Ur 07/08/2016 Ketones Ur 40 High Negative Strip.auto-mCnc Strip.auto-mCnc Leukocyte esterase 07/08/2016 Leukocyte esterase Ur Negative Negative Ur Ql Strip.auto Ql Strip.auto Mucus [presence] in 07/08/2016 Mucus [presence] in Small None Seen urine sediment by urine sediment by light micros light microscopy Nitrite Ur Ql 07/08/2016 Nitrite Ur Ql Negative Negative Strip.auto Strip.auto Urine glucose 07/08/2016 Urine glucose Negative Negative measurement by measurement by automated test strip automated test strip (mass/volume) Urine appearance 07/08/2016 Urine appearance SL Cloudy Clear determination determination Prot Ur 07/08/2016 Prot Ur Negative Negative Strip.auto-mCnc Strip.auto-mCnc Laboratory test 03/13/2016 Alanine 30 12-78 finding Aminotransferase (Alt/SGPT) Albumin 4.0 3.4-5.0 Albumin/Globulin Ratio 1.0 Alkaline Phosphatase 87 45-117 Anion Gap 13 8-16 Aspartate Amino Transf (Ast/Sgot) 22 15-37 BUN/Creatinine Ratio 21.4 Basophils # (Auto) 0.02 0.0-0.1 Basophils (%) (Auto) 0.2 0.0-1.1 Blood Urea Nitrogen 15 7-18 Calcium Level 8.7 8.5-10.1 Carbon Dioxide Level 23 21-32 Chloride Level 104 98-107 Creatinine 0.7 0.6-1.3 Eosinophils # (Auto) 0.00 0.0-0.5 Eosinophils (%) (Auto) 0.0 0.0-6.6 Globulin 4.2 1.9-4.3 Glucose Screen 140 High 74-106 Hematocrit 38.2 36.0-46.1 Hemoglobin 13.3 11.6-15.8 Indirect Bilirubin 0.2 0.0-0.9 Lymphocytes # (Auto) 1.40 Low 1.8-7.0 Lymphocytes (%) (Auto) 15.7 Low 17.0-46.1 Manual Slide Review (Hematology) . Mean Corpuscular Hemoglobin 32.0 25.9-32.7 Mean Corpuscular Hemoglobin Concent 34.8 High 30.8-34.3 Mean Corpuscular Volume 91.8 80.9-99.0 Mean Platelet Volume 9.4 8.9-12.4 Monocytes # (Auto) 0.29 Low 0.3-0.9 Monocytes (%) (Auto) 3.3 Low 4.3-13.2 Neutrophils # (Auto) 7.18 High 1.8-7.0 Neutrophils (%) (Auto) 80.8 High 40.4-72.8 Platelet Count 306 155-360 Potassium Level 3.1 Low 3.5-5.1 RDW Coefficient of Variation 12.4 11.7-14.4 Red Blood Count 4.16 3.90-5.40 Red Cell Distribution Width 40.5 3-47 Sodium Level 140 136-145 Total Bilirubin 0.3 0.2-1.0 Total Protein 8.2 6.4-8.2 White Blood Count 8.9 3.1-10.7 Xray 02/27/2016 MRI, Breast, Bilateral phone call 03/06 Laboratory test finding 02/25/2016 BUN 18 mg/dL 7-18 Creatinine 0.7 mg/dL 0.6-1.3 Comprehensive Metabolic Panel 01/14/2016 Glucose 87 mg/dL 74-106 BUN 25 mg/dL High 7-18 Creatinine 0.7 mg/dL 0.6-1.3 Glom Filtration Rate, Estimate >60 mL/min >60 If >60 mL/min >60 25 BUN/Creat 35.7 ratio Sodium 140 mmol/L 136-145 Potassium 4.1 mmol/L 3.5-5.1 Chloride 106 mmol/L 98-107 Carbon Dioxide 24 mmol/L 21-32 Anion Gap 10 mEq/L 8-16 Calcium 8.8 mg/dL 8.5-10.1 Total Protein 7.4 g/dL 6.4-8.2 Albumin 3.6 g/dL 3.4-5.0 Globulin 3.8 g/dL 1.9-4.3 Alb/Glob 0.9 ratio Bilirubin,Total 0.3 mg/dL 0.2-1.0 Sgot/Ast 21 U/L 15-37 SGPT/Alt 27 U/L 12-78 Alkaline Phosphatase 90 U/L 45-117 CBC W/Automated Diff 01/14/2016 White Blood Count 6.5 K/uL 3.1-10.7 Red Blood Count 4.18 M/uL 3.90-5.40 Hemoglobin 13.3 gm/dL 11.6-15.8 Hematocrit 39.2 % 36.0-46.1 Mean Cell Volume 93.8 fl 80.9-99.0 Mean Corpuscular HGB 31.8 pg 25.9-32.7 Mean Corpuscular HGB Conc 33.9 g/dL 30.8-34.3 Platelet Count 311 K/uL 155-360 Red Cell Distri Width SD 42.2 fl 3-47 Red Cell Distri Width %CV 12.6 % 11.7-14.4 Mean Platelet Volume 9.7 fL 8.9-12.4 Neut% 38.5 % Low 40.4-72.8 Lymph % 48.6 % High 17.0-46.1 Dane % 9.4 % 4.3-13.2 Eo% 2.9 % 0.0-6.6 Bas% 0.6 % 0.0-1.1 Neut# 2.49 K/uL 1.8-7.0 Lymph # 3.15 K/uL 1.8-7.0 Dane # 0.61 K/uL 0.3-0.9 Eos # 0.19 K/uL 0.0-0.5 Baso # 0.04 K/uL 0.0-0.1 Laboratory test finding 01/14/2016 Basophils # (Auto) 0.04 0.0-0.1 Basophils (%) (Auto) 0.6 0.0-1.1 Carbon Dioxide Level 24 21-32 Eosinophils # (Auto) 0.19 0.0-0.5 Eosinophils (%) (Auto) 2.9 0.0-6.6 Lymphocytes # (Auto) 3.15 1.8-7.0 Lymphocytes (%) (Auto) 48.6 High 17.0-46.1 Monocytes # (Auto) 0.61 0.3-0.9 Monocytes (%) (Auto) 9.4 4.3-13.2 Neutrophils # (Auto) 2.49 1.8-7.0 Neutrophils (%) (Auto) 38.5 Low 40.4-72.8 RDW Coefficient of Variation 12.6 11.7-14.4 Red Cell Distribution Width 42.2 3-47 Sodium Level 140 136-145 LDL Cholesterol Profile 01/14/2016 Cholesterol 152 mg/dL <200 26 Triglycerides 142 mg/dL <150 27 HDL Cholesterol 52 mg/dL >40 28 LDL-Cholesterol 72 mg/dL < 100 29 Laboratory test finding 01/14/2016 Ferritin 114 ng/mL 8-252 Laboratory test finding 09/02/2015 Basophils # (Auto) 0.02 0.0-0.1 Basophils (%) (Auto) 0.2 0.0-1.1 Eosinophils # (Auto) 0.02 0.0-0.5 Eosinophils (%) (Auto) 0.2 0.0-6.6 Lymphocytes # (Auto) 1.36 Low 1.8-7.0 Lymphocytes (%) (Auto) 14.7 Low 17.0-46.1 Manual Slide Review (Hematology) . Monocytes # (Auto) 0.50 0.3-0.9 Monocytes (%) (Auto) 5.4 4.3-13.2 Neutrophils # (Auto) 7.34 High 1.8-7.0 Neutrophils (%) (Auto) 79.5 High 40.4-72.8 RDW Coefficient of Variation 11.9 11.7-14.4 Red Cell Distribution Width 39.5 3-47 Sodium Level 141 136-145 Laboratory test finding 09/02/2015 Slide Review . 30 CBC W/Automated Diff 09/02/2015 White Blood Count 9.2 K/uL 3.1-10.7 Red Blood Count 4.19 M/uL 3.90-5.40 Hemoglobin 13.6 gm/dL 11.6-15.8 Hematocrit 38.9 % 36.0-46.1 Mean Cell Volume 92.8 fl 80.9-99.0 Mean Corpuscular HGB 32.5 pg 25.9-32.7 Mean Corpuscular HGB Conc 35.0 g/dL High 30.8-34.3 Platelet Count 364 K/uL High 155-360 Red Cell Distri Width SD 39.5 fl 3-47 Red Cell Distri Width %CV 11.9 % 11.7-14.4 Mean Platelet Volume 9.6 fL 8.9-12.4 Neut% 79.5 % High 40.4-72.8 Lymph % 14.7 % Low 17.0-46.1 Dane % 5.4 % 4.3-13.2 Eo% 0.2 % 0.0-6.6 Bas% 0.2 % 0.0-1.1 Neut# 7.34 K/uL High 1.8-7.0 Lymph # 1.36 K/uL Low 1.8-7.0 Dane # 0.50 K/uL 0.3-0.9 Eos # 0.02 K/uL 0.0-0.5 Baso # 0.02 K/uL 0.0-0.1 Comprehensive Metabolic Panel 09/02/2015 Glucose 124 mg/dL High 74-106 BUN 19 mg/dL High 7-18 Creatinine 0.8 mg/dL 0.6-1.3 Glom Filtration Rate, Estimate >60 mL/min >60 If >60 mL/min >60 31 BUN/Creat 23.7 ratio Sodium 141 mmol/L 136-145 Potassium 3.5 mmol/L 3.5-5.1 Chloride 105 mmol/L 98-107 Carbon Dioxide 24 mmol/L 21-32 Anion Gap 12 mEq/L 8-16 Calcium 8.4 mg/dL Low 8.5-10.1 Total Protein 8.2 g/dL 6.4-8.2 Albumin 3.9 g/dL 3.4-5.0 Globulin 4.3 g/dL 1.9-4.3 Alb/Glob 0.9 ratio Bilirubin,Total 0.3 mg/dL 0.2-1.0 Sgot/Ast 30 U/L 15-37 SGPT/Alt 40 U/L 12-78 Alkaline Phosphatase 113 U/L 45-117 Laboratory test finding 08/30/2015 Ferritin 68 ng/mL 8-252 Laboratory test finding 08/30/2015 Basophils # (Auto) 0.02 0.0-0.1 Basophils (%) (Auto) 0.3 0.0-1.1 Eosinophils # (Auto) 0.22 0.0-0.5 Eosinophils (%) (Auto) 3.3 0.0-6.6 Lymphocytes # (Auto) 2.59 1.8-7.0 Lymphocytes (%) (Auto) 39.4 17.0-46.1 Monocytes # (Auto) 0.61 0.3-0.9 Monocytes (%) (Auto) 9.3 4.3-13.2 Neutrophils # (Auto) 3.14 1.8-7.0 Neutrophils (%) (Auto) 47.7 40.4-72.8 RDW Coefficient of Variation 11.9 11.7-14.4 Red Cell Distribution Width 40.9 3-47 Sodium Level 139 136-145 Comprehensive Metabolic Panel 08/30/2015 Glucose 84 mg/dL 74-106 BUN 25 mg/dL High 7-18 Creatinine 0.7 mg/dL 0.6-1.3 Glom Filtration Rate, Estimate >60 mL/min >60 If >60 mL/min >60 32 BUN/Creat 35.7 ratio Sodium 139 mmol/L 136-145 Potassium 4.0 mmol/L 3.5-5.1 Chloride 105 mmol/L 98-107 Carbon Dioxide 26 mmol/L 21-32 Anion Gap 8 mEq/L 8-16 Calcium 8.2 mg/dL Low 8.5-10.1 Total Protein 7.4 g/dL 6.4-8.2 Albumin 3.5 g/dL 3.4-5.0 Globulin 3.9 g/dL 1.9-4.3 Alb/Glob 0.9 ratio Bilirubin,Total 0.2 mg/dL 0.2-1.0 Sgot/Ast 23 U/L 15-37 SGPT/Alt 35 U/L 12-78 Alkaline Phosphatase 92 U/L 45-117 CBC W/Automated Diff 08/30/2015 White Blood Count 6.6 K/uL 3.1-10.7 Red Blood Count 3.75 M/uL Low 3.90-5.40 Hemoglobin 12.0 gm/dL 11.6-15.8 Hematocrit 36.0 % 36.0-46.1 Mean Cell Volume 96.0 fl 80.9-99.0 Mean Corpuscular HGB 32.0 pg 25.9-32.7 Mean Corpuscular HGB Conc 33.3 g/dL 30.8-34.3 Platelet Count 366 K/uL High 155-360 Red Cell Distri Width SD 40.9 fl 3-47 Red Cell Distri Width %CV 11.9 % 11.7-14.4 Mean Platelet Volume 10.5 fL 8.9-12.4 Neut% 47.7 % 40.4-72.8 Lymph % 39.4 % 17.0-46.1 Dane % 9.3 % 4.3-13.2 Eo% 3.3 % 0.0-6.6 Bas% 0.3 % 0.0-1.1 Neut# 3.14 K/uL 1.8-7.0 Lymph # 2.59 K/uL 1.8-7.0 Dane # 0.61 K/uL 0.3-0.9 Eos # 0.22 K/uL 0.0-0.5 Baso # 0.02 K/uL 0.0-0.1 Xray 05/09/2014 MRI, Breast, Right no malignancy 1 E78.5,E55.9 2 Note: Persistent reduction for 3 months or more in an eGFR <60 mL/min/1.73 m2 defines CKD. Patients with eGFR values >/=60 mL/min/1.73 m2 may also have CKD if evidence of persistent proteinuria is present. The original MDRD equation for estimated GFR is not valid for patients less than 18 years of age. Additional information may be found at www.kdoqi.org. 3 Reference Guidelines*: Desirable: ........... < 200 mg/dL Borderline High: ..... 200-239 mg/dL High: ................ >=240 mg/dL * The National Cholesterol Education Program (NCEP) 4 Reference Guidelines*: Normal: ............. < 150 mg/dL Borderline High: .... 150-199 mg/dL High: ............... 200-499 mg/dL Very High: .......... > 500 mg/dL * Source: National Cholesterol Education Program (NCEP) 5 Reference Guidelines*: Low HDL: ..... < 40 mg/dL Normal: ..... 40-60 mg/dL Desirable: ... > 60 mg/dL *The National Cholesterol Education Program(NCEP) 6 Reference Guidelines*: Optimal:........... <100 mg/dL Near Optimal....... 100-129 mg/dL Borderline High.... 130-159 mg/dL High............... 160-189 mg/dL Very High.......... >=190 mg/dL * Source: National Cholesterol Education Program (NCEP) 7 Vitamin D deficiency has been defined by the [place] [employer] and an Endocrine Society practice guideline as a level of serum 25-OH vitamin D less than 20 ng/mL (1,2). The Endocrine Society went on to further define vitamin D insufficiency as a level between 21 and 29 ng/mL (2). 1. IOM ([place] [employer]). 2010. Dietary reference intakes for calcium and D. [place]: The National Academies Press. 2. Violeta MF, Bekah NC, Victorino PARRA, et al. Evaluation, treatment, and prevention of vitamin D deficiency: an Endocrine Society clinical practice guideline. JCEM. 2010; 96(7):1911-30. Performed at: RN - [facility] [address] [id number] [employer] Specialist: July Brown MD, Phone: [phone] E78.5 I10 E66.09 E55.9 9 Vitamin D deficiency has been defined by the [place] [employer] and an Endocrine Society practice guideline as a level of serum 25-OH vitamin D less than 20 ng/mL (1,2). The Endocrine Society went on to further define vitamin D insufficiency as a level between 21 and 29 ng/mL (2). 1. IOM ([place] [employer]). 2010. Dietary reference intakes for calcium and D. [place]: The National Academies Press. 2. Violeta MF, Bekah CERVANTES, Victorino PARRA, et al. Evaluation, treatment, and prevention of vitamin D deficiency: an Endocrine Society clinical practice guideline. JCEM. 2010; 96(7):1911-30. Performed at: RN - [facility] [address] [id number] [employer]rication Specialist: July Brown MD, Phone: [phone] Note: Persistent reduction for 3 months or more in an eGFR <60 mL/min/1.73 m2 defines CKD. Patients with eGFR values >/=60 mL/min/1.73 m2 may also have CKD if evidence of persistent proteinuria is present. The original MDRD equation for estimated GFR is not valid for patients less than 18 years of age. Additional information may be found at www.kdoqi.org. 11 Elevated levels of HbA1c suggest the need for more aggressive treatment of glycemia. The [place] Diabetes [employer] recommends that a primary goal of therapy should be a HbA1c of <7% and that physicians should re-evaluate the treatment regimen in patients with HbA1c values consistently >8%. 12 Reference Guidelines*: Desirable: ........... < 200 mg/dL Borderline High: ..... 200-239 mg/dL High: ................ >=240 mg/dL * The National Cholesterol Education Program (NCEP) 13 Reference Guidelines*: Normal: ............. < 150 mg/dL Borderline High: .... 150-199 mg/dL High: ............... 200-499 mg/dL Very High: .......... > 500 mg/dL * Source: National Cholesterol Education Program (NCEP) 14 Reference Guidelines*: Low HDL: ..... < 40 mg/dL Normal: ..... 40-60 mg/dL Desirable: ... > 60 mg/dL *The National Cholesterol Education Program(NCEP) 15 Reference Guidelines*: Optimal:........... <100 mg/dL Near Optimal....... 100-129 mg/dL Borderline High.... 130-159 mg/dL High............... 160-189 mg/dL Very High.......... >=190 mg/dL * Source: National Cholesterol Education Program (NCEP) 16 D50.9; E78.5 17 Vitamin D deficiency has been defined by the [place] [employer] and an Endocrine Society practice guideline as a level of serum 25-OH vitamin D less than 20 ng/mL (1,2). The Endocrine Society went on to further define vitamin D insufficiency as a level between 21 and 29 ng/mL (2). 1. IOM ([place] [employer]). 2010. Dietary reference intakes for calcium and D. [place]: The National Academies Press. 2. Violeta MF, Bekah [place], Victorino PARRA, et al. Evaluation, treatment, and prevention of vitamin D deficiency: an Endocrine Society clinical practice guideline. JCEM. 2010; 96(7):1911-30. Performed at: RN - [facility] [address] [id number] [employer]of[employer]rication Specialist: July Brown MD, Phone: [phone] 18 Reference Guidelines*: Desirable: ........... < 200 mg/dL Borderline High: ..... 200-239 mg/dL High: ................ >=240 mg/dL * The National Cholesterol Education Program (NCEP) 19 Reference Guidelines*: Normal: ............. < 150 mg/dL Borderline High: .... 150-199 mg/dL High: ............... 200-499 mg/dL Very High: .......... > 500 mg/dL * Source: National Cholesterol Education Program (NCEP) 20 Reference Guidelines*: Low HDL: ..... < 40 mg/dL Normal: ..... 40-60 mg/dL Desirable: ... > 60 mg/dL *The National Cholesterol Education Program(NCEP) 21 Reference Guidelines*: Optimal:........... <100 mg/dL Near Optimal....... 100-129 mg/dL Borderline High.... 130-159 mg/dL High............... 160-189 mg/dL Very High.......... >=190 mg/dL * Source: National Cholesterol Education Program (NCEP) 22 Note: Persistent reduction for 3 months or more in an eGFR <60 mL/min/1.73 m2 defines CKD. Patients with eGFR values >/=60 mL/min/1.73 m2 may also have CKD if evidence of persistent proteinuria is present. The original MDRD equation for estimated GFR is not valid for patients less than 18 years of age. Additional information may be found at www.kdoqi.org. 23 D50.9 24 Note: Persistent reduction for 3 months or more in an eGFR <60 mL/min/1.73 m2 defines CKD. Patients with eGFR values >/=60 mL/min/1.73 m2 may also have CKD if evidence of persistent proteinuria is present. The original MDRD equation for estimated GFR is not valid for patients less than 18 years of age. Additional information may be found at www.kdoqi.org. 25 Note: Persistent reduction for 3 months or more in an eGFR <60 mL/min/1.73 m2 defines CKD. Patients with eGFR values >/=60 mL/min/1.73 m2 may also have CKD if evidence of persistent proteinuria is present. The original MDRD equation for estimated GFR is not valid for patients less than 18 years of age. Additional information may be found at www.kdoqi.org. 26 Reference Guidelines*: Desirable: ........... < 200 mg/dL Borderline High: ..... 200-239 mg/dL High: ................ >=240 mg/dL * The National Cholesterol Education Program (NCEP) 27 Reference Guidelines*: Normal: ............. < 150 mg/dL Borderline High: .... 150-199 mg/dL High: ............... 200-499 mg/dL Very High: .......... > 500 mg/dL * Source: National Cholesterol Education Program (NCEP) 28 Reference Guidelines*: Low HDL: ..... < 40 mg/dL Normal: ..... 40-60 mg/dL Desirable: ... > 60 mg/dL *The National Cholesterol Education Program(NCEP) 29 Reference Guidelines*: Optimal:........... <100 mg/dL Near Optimal....... 100-129 mg/dL Borderline High.... 130-159 mg/dL High............... 160-189 mg/dL Very High.......... >=190 mg/dL * Source: National Cholesterol Education Program (NCEP) 30 Instrument flagged sample for slide review. No immature WBC's noted. RBC morphology essentially normal. 31 Note: Persistent reduction for 3 months or more in an eGFR <60 mL/min/1.73 m2 defines CKD. Patients with eGFR values >/=60 mL/min/1.73 m2 may also have CKD if evidence of persistent proteinuria is present. The original MDRD equation for estimated GFR is not valid for patients less than 18 years of age. Additional information may be found at www.kdoqi.org. 32 Note: Persistent reduction for 3 months or more in an eGFR <60 mL/min/1.73 m2 defines CKD. Patients with eGFR values >/=60 mL/min/1.73 m2 may also have CKD if evidence of persistent proteinuria is present. The original MDRD equation for estimated GFR is not valid for patients less than 18 years of age. Additional information may be found at www.kdoqi.org. Procedures Date CPT Code Description Status Comment 08/03/2017 Mammogram Completed 07/30/2017 Mammogram Completed Document: 07/30/17 - Screening Mammogram Bilateral Document: 10/16/17 - Breast Unilateral Complete U/S 04/07/2017 Colonoscopy Completed 04/07/2017 [id number] Colonoscopy Completed 01/15/2016 Mammogram Completed 10/13/2013 Mammogram Completed 01/07/2013 17618 Radiology, L-S Spine Complete Completed 10/01/2012 Mammogram Completed 09/01/2011 Mammogram Completed 03/14/2011 28844 Anesthesia, Upper GI Completed Endoscopic Surgery 12/21/2009 Mammogram Completed 11/17/2008 Mammogram Completed 08/28/2008 34979 EKG Interpretation And Report Completed Only 04/18/2008 Mammogram Completed 03/16/2008 16179 EKG Interpretation And Report Completed Only 10/12/2007 Mammogram Completed 09/27/2007 Mammogram Completed 09/07/2006 Mammogram Completed 09/03/2005 Mammogram Completed 09/02/2004 Mammogram Completed 08/31/2003 Mammogram Completed 08/26/2002 Mammogram Completed 07/05/2002 Mammogram Completed 06/22/2002 Mammogram Completed 12/24/2001 Mammogram Completed 05/25/2001 Mammogram Completed 04/24/2000 Mammogram Completed 04/11/1999 Mammogram Completed 04/09/1998 Mammogram Completed 04/10/1997 Mammogram Completed 04/14/1996 Mammogram Completed 03/19/1995 Mammogram Completed 01/28/1994 Mammogram Completed 02/14/1993 Mammogram Completed 01/31/1992 Mammogram Completed 08/06/1990 Mammogram Completed 02/12/1989 Mammogram Completed 10/16/1986 Mammogram Completed Encounters Type Date Location Provider CPT E/M Dx Office Visit 12/16/2017 8:40a [place] [address] R05 J06.9 Office Visit 10/21/2017 2:00p Surgical Office Meliton Garcia 79560 R92.8 Mohini Gonzalez Office Visit 09/21/2017 3:20p [place] [address] E78.5 I10 F41.9 E55.9 M48.00 Office Visit 06/08/2017 2:00p [place] [address] I10 E78.5 F41.9 M24.672 Office Visit 12/03/2016 11:30a Primary Care Office Maribell Gutierrez PA-C 53434 I10 F41.9 F32.89 D50.9 E78.5 Office Visit 11/05/2016 2:00p Primary Care Office Maribell Gutierrez PA-C 05351 I10 F41.9 F32.89 L23.5 Office Visit 10/15/2016 10:00a Primary Care Office Maribell Gutierrez, 30794 J06.9 PA-C R09.1 F41.9 F32.89 I10 D50.9 E78.5 Office Visit 08/19/2016 11:00a Primary Care Office Maribell Hermansung PA-C 60762 I10 D50.9 F41.9 F32.89 E78.5 Z86.010 Office Visit 07/31/2016 9:00a Surgical Office Meliton CarolinaHerbert Gonzalez, 90475 Z12.31 Mohini Z86.010 Office Visit 04/02/2016 10:30a Primary Care Office Maribell Hermanard, 53956 F41.9 PA-C F32.8 M48.00 D50.9 I10 E78.5 Z86.010 R10.9 Office Visit 03/20/2016 1:45p Surgical Office Meliton Garcia 20084 R10.9 Mohini Gonzalez Office Visit 02/19/2016 2:30p Primary Care Office Maribell Hermanard, 90365 F41.9 PA-C F32.8 M48.00 D50.9 I10 E78.5 Z86.010 Z71.6 F17.200 Office Visit 01/15/2016 11:00a Primary Care Office Maribell Gutierrez, 47455 M48.00 PA-C D50.9 F32.8 I10 E78.5 Z86.010 F41.9 Z71.6 F17.200 Office Visit 11/27/2015 11:00a Primary Care Office Maribell Hermanard, 24140 J01.90 PA-C M48.00 D50.9 F32.8 I10 E78.5 Z86.010 F41.9 Office Visit 10/15/2015 11:00a Primary Care Office Maribell Hackett Matt, 29361 M48.00 PA-C D50.9 F32.8 I10 E78.5 Z86.010 F41.9 Office Visit 09/03/2015 9:30a GI Maribell Gutierrez PA-C 98201 F32.8 M48.00 D50.9 I10 E78.5 Z86.010 F41.9 Office Visit 03/22/2015 1:30p HARDIK Gutierrez PA-C 39500 724.00 280.9 401.9 272.4 V12.72 V70.0 Office Visit 05/11/2014 10:30a Surgical Office Meliton FigueroaHerbert 76537 217 Mohini Gonzalez Office Visit 04/13/2014 11:30a Surgical Office Ambrosiolit FigueroaHerbert 55181 709.9 Mohini Gonzalez Office Visit 10/27/2013 3:30p Surgical Office Ambrosiolit Jose 99907 217 Mohini Gonzalez Office Visit 01/20/2013 10:15a Orthopaedic Office Keaton Evans M.D., 18810 724.2 FACS 738.4 722.10 721.3 719.45 715.15 Office Visit 01/07/2013 10:00a Orthopaedic Office Keaton Evans M.D., 83178 724.2 FACS 738.4 722.10 721.3 719.45 Office Visit 10/06/2012 1:00p Surgical Office Meliton Gonzalez 98441 217 M.D. Office Visit 09/11/2011 2:00p Surgical Office Meliton Gonzalez 38397 217 M.D. Office Visit 04/04/2010 2:30p Surgical Office Meliton Gonzalez 10438 217 M.DHerbert Office Visit 11/29/2008 10:00a Surgical Office Meliton Gonzalez 93372 217 M.D. Office Visit 11/10/2008 4:00p HARDIK Maddox M.D. 36068 729.1 530.81 496 V76.41 Office Visit 04/02/2007 9:00a HARDIK Maddox M.D. 15286 723.1 Plan of Care Future Appointment(s):03/24/2018 2:00 pm - Zarina Ballard MS, DIRECTOR OF PHYSIOTHERAPY SERVICES-C, CNM at [facility] [id number]/08/2018 3:00 pm - Yeni Parisi MD at [facility] [id number]/12/2018 - Zarina Ballard, MS, DIRECTOR OF PHYSIOTHERAPY SERVICES-C, CNMF41.0 Panic disorder [ episodic paroxysmal anxiety]New Medication:Venlafaxine HCL ER 37.5 mgComments: Patient advised to cut Paroxetine HCL 40 mg in half (Total 20 mg po qday) for 2 weeksWe will starteffector 37.5 mg po. Patient to monitor effects, keep diary. Patient states unable to walk long distance due to back. We will discuss water therapy after Patient mentally feels better. Patient looked and felt better after OV with long discussion and allowing Patient to ventilate her feelings.Patient can continue her Diazepam 10 mg 1 tab by mouth three times a day as needed and herMirtazapine 15 mg 1 tablet by mouth at at bedtime.We will be working towards using Diazepam only prn and not routinely TID Patient advised if suicidal to go to ER STAT Patient verbalizes understanding and denies any suicidal [id number] Tremor, unspecifiedComments:We discussed neurological consult; however, Patient did not want one, as she had it was just becauseshe is nervous. At the end of OV, Patient was not shaking. Patient is to continue to observe.AllFollow up:RTO in 2 weeks
[2018-03-23 15:15] VITALS: BP 172/82
--- NOTE | 2018-03-23 15:25 | UC ---
Upper Extremity HPI - HPI Summary HPI Summary: Around 2:30 this morning, patient rolled over in bed and went to extend her left arm above her head when she felt a sudden pain and heard a pop in her left shoulder. She complains of ongoing pain to the shoulder. Sometimes the pain shoots down her arm. She denies any associated injury or pain to her neck. She does have history of arthritis and has had neck and back surgeries as a result but notes that the shoulder something different. She has no weakness to the arm she's no chest pain or short of breath. She's been treating with over- the-counter Motrin plus takes Soma for her chronic neck and back issues. - History of Current Complaint Chief Complaint: UCUpperExtremity Stated Complaint: LEFT ARM PAIN Time Seen by Provider: 03/23/18 15:10 Hx Obtained From: Patient Onset/Duration: Sudden Onset Pain Intensity: 10 Alleviating Factor(s): Rest Associated Signs And Symptoms: Positive: Numbness/Tingling - tingling L arm. Negative: Swelling, Redness, Bruising, Weakness - Allergies/Home Medications Allergies/Adverse Reactions: Allergies Allergy/AdvReac Type Severity Reaction Status Date / Time buspirone Allergy See Comment Verified 03/23/18 15:17 pregabalin [From Lyrica] Allergy Swelling Verified 03/23/18 15:17 quetiapine Allergy See Comment Verified 03/23/18 15:17 PMH/Surg Hx/FS Hx/Imm Hx - Additional Past Medical History Additional PMH: OA Endocrine History: Dyslipidemia Cardiovascular History: Hypertension Respiratory History: COPD Psychological History: Anxiety, Depression - Surgical History Surgical History: Yes Surgery Procedure, Year, and Place: neck, back. patrizia - Family History Known Family History: Positive: None, Unknown, Cardiac Disease, Hypertension - Social History Lives: With Family Alcohol Use: None Substance Use Type: None Smoking Status (MU): Current Every Day Smoker Type: Cigarettes Amount Used/How Often: less than 1/2 PPD Household Exposure Type: Cigarettes - Immunization History Vaccination Up to Date: Yes Review of Systems Constitutional: Negative Skin: Negative Eyes: Negative ENT: Negative Respiratory: Negative Cardiovascular: Negative Gastrointestinal: Negative Genitourinary: Negative Motor: Negative Neurovascular: Negative Musculoskeletal: Other: - Chronic neck and back discomforts. Acute pain left shoulder. Neurological: Negative Psychological: Negative Is Patient Immunocompromised?: No All Other Systems Reviewed And Are Negative: Yes Physical Exam Triage Information Reviewed: Yes Appearance: Well-Appearing Vital Signs: Initial Vital Signs Temp 98.2 F 03/23/18 15:10 Pulse 79 03/23/18 15:10 Resp 18 03/23/18 15:10 BP 172/82 03/23/18 15:10 Pulse Ox 97 03/23/18 15:10 Vital Signs Reviewed: Yes Eyes: Positive: Conjunctiva Clear ENT: Positive: Normal ENT inspection Neck: Positive: Supple, Nontender, No Lymphadenopathy, Other: - C-spine is nontender. Respiratory: Positive: Chest non-tender, Lungs clear, Normal breath sounds Cardiovascular: Positive: RRR, No Murmur Abdomen Description: Positive: Nontender, No Organomegaly, Soft Bowel Sounds: Positive: Present Musculoskeletal: Positive: Other: - LUE: No gross deformity swelling or discoloration. Shoulder girdle has generalized tenderness to palpation. Any attempts with active and passive range of motion causes patient pain. No crepitation or instability appreciated. The distal humerus elbow forearm wrist and hand are nontender. The hand has full sensorivascular motor function. The thoracic and lumbar spine are nontender. Neurological: Positive: Alert Psychological: Positive: Age Appropriate Behavior Skin Exam: Normal Skin: Negative: rashes Diagnostics - Radiology No standard instances Radiology Interpretation Completed By: Radiologist - IMPRESSION: NO SIGNIFICANT ABNORMALITIES. L shoulder Upper Extremity Course/Dx - Course Course Of Treatment: no fx or dislocation. - Differential Dx/Diagnosis Provider Diagnoses: Acute left shoulder pain Discharge - Sign-Out/Discharge Documenting (check all that apply): Patient Departure All imaging exams completed and their final reports reviewed: Yes - Discharge Plan Condition: Stable Disposition: HOME Prescriptions: Naproxen [Naprosyn 500 mg tab] 500 mg PO BID 5 Days #10 tablet Patient Education Materials: Shoulder Pain (ED) Referrals: Yeni Parisi MD [Primary Care Provider] - 1 Day Branden Frazier MD [Medical Doctor] - As Soon As Possible Additional Instructions: SLING FOR COMFORT BUT REMOVE 2-3 X'S DAILY AND GENTLY SWING SHOULDER (PENDULAR SWINGS) SHOWN DURING VISIT. IF THAT IS PAINFUL THEN STOP. - Billing Disposition and Condition Condition: STABLE Disposition: Home
[2018-03-23] MEDS ORDERED: HYDROcodone/ACETAMIN 5-325 MG* 1 TAB PO ONE (15:27)
--- NOTE | 2018-03-23 16:04 | RAD ---
INDICATION: Left shoulder pain COMPARISON: None TECHNIQUE: Routine frontal, Y and axial views were obtained. FINDINGS: There are are no acute bony findings. There is minor age-related a.c. and glenohumeral joint osteoarthritis. The soft tissues are normal. Incidental note is made of prior cervical fusion. IMPRESSION: NO SIGNIFICANT ABNORMALITIES.
== END 2018-03-23 16:26 | disposition home or self-care (01) ==
LOC: UCCORT 14:25
DX: M25.512 Pain in left shoulder (principal); M19.90 Unspecified osteoarthritis, unspecified site; I10 Essential (primary) hypertension; J44.9 Chronic obstructive pulmonary disease, unspecified; F17.210 Nicotine dependence, cigarettes, uncomplicated; Z88.8 Allergy status to other drugs, medicaments and biological substances
CPT/HCPCS: 99213; G0463